=== PATIENT | female | born 1945 | race Caucasian/White ===

== ENCOUNTER → 2017-09-05 | Outpatient (CLI) | payer OTHER ==
[~2017-09-05] VITALS: Ht 167.6 cm; Wt 96.9 kg
[~2017-09-05] MED LIST: ALENDRONATE SOD35 MG PO; ALEVE220 MG PO; ASPIR 8181 MG PO; CALCIUM CITRAT1 EAC5 PO; CENTRUM SILVER1 EAC4 PO; CO-ENZYME Q-1010 MG PO; FISH OIL 1,001000 M2 PO; GLUCOSAMINE HC500 MG PO; KETOCONAZOLE15 GM TOP; NEXIUM40 MG PO; TRAMADOL 50 MG50 MG PO; TUMS PO
--- NOTE | ~2017-09-05 | HPC ---
[facility] [address] [place] [address] PAIN MANAGEMENT CONSULTATION Name: LATOYA GREENBERG Room #: REG [facility].#: [id number] Admission: 09/05/17 Attend Phys: Domingo Romero DO Discharge: Date of : 43 Report #: [id number] THIS REPORT FOR: //name// CC: Ivan Romero DATE OF SERVICE: 09/05/2017 HISTORY OF PRESENT ILLNESS: The patient is a very pleasant 71-year-old female, seen in consultation at the request of Dr. Philip for assistance with management of pain in left groin. The patient notes pain seems to have started this past fall. She notes she was doing a lot of bending, squatting, twisting. Pain became problematic around May or June, pain in the right groin started radiating to the medial anterior thigh. She states the pain is constant, shooting, aching, sharp and stabbing. She rates anywhere from 2 to "12+" on a 0-10 visual analog scale. She denies any specific radicular symptoms, no myelopathic symptoms, no bowel or bladder continence changes. She states Aleve helps some, perhaps 10%, tramadol helps some, perhaps 40-50%, but it causes sedation. REVIEW OF SYSTEMS: Complete review of systems is attached to chart, was gone over with the patient. She is , does not smoke or drink alcohol to excess. History of sleep apnea for which she uses CPAP, osteoporosis, currently taking Fosamax weekly; history of gastroesophageal reflux for which she takes omeprazole. 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 She has had multiple joint surgeries including left knee arthroscopy in 2008, right ankle reconstruction in 1997, 1998, and 1999. Remaining review of systems is noncontributory. 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 Pain impact score averages about 52/70. PHYSICAL EXAMINATION: Reveals a 5 feet 6 inches, 96 kg female, BMI is 34.5 kg per meter squared. Blood pressure is 121/77, pulse 70, respirations 16. Alert and oriented to person, place and time, judged to be a reasonable historian. Pupils equal, react to light and accommodation. Extraocular muscles are intact. Thyroid is modestly enlarged. Cervical range of motion is adequate. She does have some thoracic kyphosis. Heart is regular and rhythmical with a 2/6 systolic ejection murmur. Lungs are clear to auscultation. Abdomen shows [address] [address] PAIN MANAGEMENT CONSULTATION Name: LATOYA GREENBERG Room #: REG [facility] Mariam#: [id number] Admission: 09/05/17 Attend Phys: Domingo Romero DO Discharge: Date of : 43 Report #: [id number] modestly endomorphic build. Rises from chair using armrest, has an antalgic gait. Flexion is good to 90 degrees. She can walk on her toes and heels. Straight leg raise is negative. SI joints are unremarkable. Patellar and Achilles reflexes are preserved. Lower extremity strength is symmetric; however, right hip flexion and lower extremity extension muscle testing does exacerbate right groin with significant pain with rotation of the right hip. Skin integument notes an erythematous area in the right groin compatible with topical fungal infection. She does use a topical prescription agent for this, ketaconazole cream. X-rays of the lumbar spine from 08/11/2017 notes multilevel lumbar degenerative spondylosis, a little lumbar dextroscoliosis. Again, this is really not clinically appreciable, is fairly nominal. ASSESSMENT: Right hip degenerative joint disease by clinical examination and history, component of lumbar spondylosis and topical fungal infection, right groin. RECOMMENDATIONS: 1. Continue Aleve 2 tablets b.i.d. and tramadol for pain. 2. X-rays right hip. 3. Right hip injection under fluoroscopy today. 4. Follow up in 2-3 weeks for reevaluation. We may consider right L2-L3 transforaminal epidural injection for fairly novel presentation of right L2 radiculopathy. Thanks for allowing me to participate in the patient's care, I will keep you abreast of her progress. PROCEDURE: Right hip joint injection under fluoroscopy. DESCRIPTION OF PROCEDURE: After informed consent was obtained, the patient was taken to the fluoroscopy suite, placed in supine position. Again, skin exactly overlying the hip was erythematous and appeared to be a fungal infection. We were able to identify an entry point 1-2 cm lateral to the erythematous area. A very careful prep was accomplished to avoid the erythematous fungal area. A skin wheal with Xylocaine was raised. A 22-gauge stylet needle was placed from a somewhat lateral approach to contact the distal trochanteric head. Negative aspiration was accomplished. Initial injection showed spread within the iliofemoral fibers. Needle was repositioned. Second injection showed good spread within the joint. This was followed with 40 mg triamcinolone plus 2 mL of 0.5% preservative-free bupivacaine. Needle was removed. The area was cleansed, Band-Aid was applied. The patient monitored for an appropriate period of time, discharged in good stable condition. Told to watch the area for signs of infection. She will need [facility] [address] [place] [address] PAIN MANAGEMENT CONSULTATION Name: LATOYA GREENBERG [id number] Admission: 09/05/17 Attend Phys: Domingo Romero DO Discharge: Date of : 43 Report #: [id number] referral to the ER if same. I am pleased to report that pain was absent on discharge. She had very good relief. She was referred from here to Radiology for x-rays of the right hip. Fluoroscopic images showed mild to moderate degenerative joint disease. Fluoroscopy time was under 10 seconds. <ELECTRONICALLY SIGNED> By: Domingo Romero DO 09/07/17 0753 [id number] Domingo Romero DO /nt
[2017-09-05 13:10] VITALS: BP 121/77
== END | disposition home or self-care (01) ==
LOC: PAIN 07:20
DX: M16.11 Unilateral primary osteoarthritis, right hip (principal); M47.896 Other spondylosis, lumbar region; G47.33 Obstructive sleep apnea (adult) (pediatric); M81.0 Age-related osteoporosis without current pathological fracture; K21.9 Gastro-esophageal reflux disease without esophagitis; M19.90 Unspecified osteoarthritis, unspecified site; Z98.890 Other specified postprocedural states; Z79.899 Other long term (current) drug therapy; Z90.710 Acquired absence of both cervix and uterus; Z88.8 Allergy status to other drugs, medicaments and biological substances; Z79.82 Long term (current) use of aspirin

== ENCOUNTER → 2017-09-19 | Outpatient (CLI) | payer OTHER ==
[~2017-09-19] VITALS: Ht 167.6 cm; Wt 96.2 kg
[~2017-09-19] MED LIST changes: -TUMS PO; +VIACTIV SOFT C1 EACH PO; +[UNRECOGNIZED DRUG - OTHER] PO
--- NOTE | ~2017-09-19 | HPC ---
[facility] [place] [address] PAIN MANAGEMENT CONSULTATION Name: LATOYA GREENBERG [id number] Admission: 09/19/17 Attend Phys: Domingo Romero DO Discharge: Date of : 43 Report #: [id number] THIS REPORT FOR: //name// CC: Ivan Romero The patient is a pleasant 71-year-old female with ongoing right groin and thigh pain. Right hip joint injection at last visit afforded some relief, but still has ongoing radicular pain in an L2 distribution. We would like to proceed with right L2-L3 transforaminal epidural injection discussed at last visit. Vital signs as noted in the chief complaint. Subjective pain score is 6 on a VAS. Modestly antalgic gait, pain with right hip flexion. ASSESSMENT: Symptomatic lumbar radiculopathy in patient with prior history of right hip osteoarthritis, though x-ray showed only nominal degenerative joint disease. PROCEDURE: Right L2-3 transforaminal epidural injection under fluoroscopy. PROCEDURE NOTE: After both written and informed consent was obtained including risk of spinal cord damage, infection, increased pain and paralysis, the patient agreed to proceed. The patient was taken to the fluoroscopy suite, placed in a prone position with appropriate abdominal bolstering. After sterile prep with ChloraPrep and sterile drape, a skin wheal with 1% Xylocaine was raised. A 22 gauge 4-1/2 inch epidural Tuohy needle was inserted. From an oblique approach into the posterior-superior aspect of the right L2-L3 neural foramen with continuous pressure on the glass syringe plunger for loss of resistance. Glass syringe was filled with 2 mL of 0.1 Xylocaine. The glass loss of resistance syringe was removed. A low volume extension tubing was connected, negative aspiration was accomplished for cerebrospinal fluid or blood. 1 mL of Omnipaque was injected which showed spread both within the epidural space and laterally along the nerve root. This was followed with 80 mg of triamcinolone plus 1 mL of 1.5% preservative-free Xylocaine. Needle was partially withdrawn, 0.5 mL of Xylocaine was injected to clear the needle and the needle was removed. The area was cleansed, band-aid was applied. The patient was allowed to ambulate to the recovery room, discharged in good and stable condition. The patient was discharged in good stable condition. Follow up in 2 weeks for reevaluation. <ELECTRONICALLY SIGNED> By: Domingo Romero DO 09/22/17 0927 1443 28 Domingo Romero DO /nt
[2017-09-19 13:57] VITALS: BP 146/76
== END | disposition home or self-care (01) ==
LOC: PAIN 06:09
DX: M54.16 Radiculopathy, lumbar region (principal); M16.11 Unilateral primary osteoarthritis, right hip; Z79.82 Long term (current) use of aspirin; Z88.8 Allergy status to other drugs, medicaments and biological substances; Z79.899 Other long term (current) drug therapy

== ENCOUNTER → 2017-10-03 | Outpatient (CLI) | payer OTHER ==
[~2017-10-03] VITALS: Ht 167.6 cm; Wt 98.4 kg
--- NOTE | ~2017-10-03 | HPC ---
[facility] [place] [address] PAIN MANAGEMENT CONSULTATION Name: LATOYA GREENBERG Room #: REG [facility] Mariam#: [id number] Admission: 10/03/17 Attend Phys: Domingo Romero DO Discharge: Date of : 43 Report #: [id number] THIS REPORT FOR: //name// CC: Ivan Romero DATE OF SERVICE: 10/03/2017 The patient is a very pleasant 72-year-old female initially seen in consultation 09/05/2017. We did a hip joint injection at that time with really no improvement in symptoms. She was seen in followup 09/19/2017. We did a right L2-L3 transforaminal epidural injection. I am pleased to report the patient notes dramatic improvement following this injection. The patient specifically reports 95% ongoing relief following the right L2-L3 transforaminal injection. She stopped taking Aleve b.i.d., is taking it on a p.r.n. basis. Rates pain a 2-3 on VAS. PHYSICAL EXAMINATION: Today shows pleasant 72-year-old female, BMI is 35 kilograms per meter squared. Blood pressure 144/70, pulse 81, respirations 14. Again, subjective pain score is quite low 2-3/10. Rises from chair easily. Gait is tandem. Lower extremity strength is generally preserved. Right hip flexion does exacerbate some pain. Straight leg raise is negative. ASSESSMENT: Symptomatic lumbar radiculopathy secondary to spinal stenosis, possible component of right hip degenerative joint disease. I did review x-rays of the right hip. Again, I have felt there was some narrowing in the joint space, though the radiologist reading is no acute pathology noted in the right hip or pelvis. ASSESSMENT: Symptomatic lumbar radiculopathy secondary to spinal stenosis, symptoms well controlled with right L2-L3 transforaminal epidural injection. RECOMMENDATION: Continue p.r.n. Aleve. We will continue physical activity, range of motion, core strengthening. Follow up as needed for repeat right L2-L3 transforaminal epidural injection if radicular symptoms become problematic. [address] [address] PAIN MANAGEMENT CONSULTATION Name: LATOYA GREENBERG Room #: REG [facility]#: [id number] Admission: 10/03/17 Attend Phys: Domingo Romero DO Discharge: Date of : 43 Report #: [id number] Thanks for allowing me to participate in the patient's care. I will keep you abreast of her progress. <ELECTRONICALLY SIGNED> By: Domingo Romero DO 10/06/17 0701 1534 07 Domingo Romero DO /nt
[2017-10-03 13:48] VITALS: BP 144/70
== END ==
LOC: PAIN 06:54
DX: M47.26 Other spondylosis with radiculopathy, lumbar region (principal); M16.11 Unilateral primary osteoarthritis, right hip

== ENCOUNTER → 2018-10-31 | Outpatient (CLI) | payer OTHER | LOC: HYPER 06:57 | DX: T21.21XD Burn of second degree of chest wall, subsequent encounter (principal); S21.002D Unspecified open wound of left breast, subsequent encounter; G62.82 Radiation-induced polyneuropathy; C50.112 Malignant neoplasm of central portion of left female breast; M19.90 Unspecified osteoarthritis, unspecified site; W88.8XXD Exposure to other ionizing radiation, subsequent encounter; X58.XXXD Exposure to other specified factors, subsequent encounter ==

== ENCOUNTER → 2018-11-07 | Outpatient (CLI) | payer OTHER | LOC: HYPER 06:40 | DX: S21.002D Unspecified open wound of left breast, subsequent encounter (principal); C50.112 Malignant neoplasm of central portion of left female breast; G62.82 Radiation-induced polyneuropathy; M19.90 Unspecified osteoarthritis, unspecified site; T66.XXXD Radiation sickness, unspecified, subsequent encounter; X58.XXXD Exposure to other specified factors, subsequent encounter ==

== ENCOUNTER → 2018-11-29 | Outpatient (CLI) | payer OTHER | LOC: HYPER 06:31 | DX: T21.21XD Burn of second degree of chest wall, subsequent encounter (principal); S21.002D Unspecified open wound of left breast, subsequent encounter; C50.112 Malignant neoplasm of central portion of left female breast; M19.90 Unspecified osteoarthritis, unspecified site; G62.82 Radiation-induced polyneuropathy; X08.8XXD Exposure to other specified smoke, fire and flames, subsequent encounter; X58.XXXD Exposure to other specified factors, subsequent encounter ==